=== PATIENT | female | born 1960 | race Caucasian/White ===

== ENCOUNTER 2022-09-15 07:01 | Day surgery (SDC) | payer OTHER ==
[~2022-09-15] VITALS: Ht 172.7 cm; Wt 117.9 kg
[~2022-09-15 07:01] MED LIST: ceFAZolin SODIUM 2 GM in D5W 50 ML IV ONE
[2022-09-15 08:40] VITALS: O2SAT 97
[2022-09-15] MEDS ORDERED: HYDROmorphone 2 MG/ML VIAL IVP PRN (10:00)
[2022-09-15] MEDS ORDERED: HYDROmorphone 1 MG/ML INJ. CARTRIDGE IVP PRN (10:00)
[2022-09-15] MEDS ORDERED: ONDANSETRON HCL 4 MG/2 ML VIAL IVP PRN ×2 (10:00→11:45)
[2022-09-15] MEDS ORDERED: LR 1,000 ML IV SCH (10:00)
[2022-09-15] MEDS ORDERED: KETOROLAC TROMETHAMINE 30 MG VIAL IVP PRN (10:00)
[2022-09-15] MEDS ORDERED: ACETAMINOPHEN I.V. 1000 MG 100 ML IV ONE (11:22)
[2022-09-15] MEDS ORDERED: HYDROcodone/ACETAMIN 7.5-325 MG TAB PO PRN (11:45)
[2022-09-15] MEDS ORDERED: MORPHINE 4 MG INJ. 4 MG/ML VIAL IVP PRN (11:45)
[2022-09-15] MEDS ORDERED: BUPIVACAINE /PF 0.25% 30 ML VIAL INJ ONE (12:10)
[2022-09-15] MEDS ORDERED: NS IRRIG SOLN 1000 ML IR ONE (12:10)
[2022-09-15] MEDS ORDERED: DEXAMETHASONE SOD PHOSPHATE 4 MG/ML VIAL ONE (12:10)
[2022-09-15] MEDS ORDERED: LIDOCAINE 2%, 20 ML MDV ONE (12:10)
[2022-09-15] MEDS ORDERED: ONDANSETRON HCL 4 MG/2 ML VIAL ONE (12:10)
[2022-09-15] MEDS ORDERED: SUCCINYLCHOLINE CHLORIDE 20 MG/ML(QUELICIN) ONE (12:10)
[2022-09-15] MEDS ORDERED: ROCURONIUM BROMIDE 10 MG/ML (ZEMURON) ONE (12:10)
[2022-09-15] MEDS ORDERED: LR 1,000 ML IV.SOLN IV ONE (12:10)
[2022-09-15] MEDS ORDERED: MIDAZOLAM HCL 5 MG/ML VIAL (VERSED) IV ONE (12:10)
[2022-09-15] MEDS ORDERED: PROPOFOL 200MG/ 20ML VIAL (DIPRIVAN) IV ONE (12:10)
[2022-09-15] MEDS ORDERED: SEVOFLURANE 15 MIN GAS INH ONE (12:10)
[2022-09-15] MEDS ORDERED: NEOSTIGMINE METHYLSULFATE 1 MG/ML, 10 ML VIAL ONE (12:10)
[2022-09-15] MEDS ORDERED: ePHEDrine sulfate 50 MG/ML VIAL ONE (12:10)
[2022-09-15] MEDS ORDERED: GLYCOPYRROLATE 0.2 MG/ML VIAL ONE (12:10)
[2022-09-15] MEDS ORDERED: fentaNYL CITRATE/PF 100 MCG/2 ML AMP ONE (12:10)
[2022-09-15] MEDS ORDERED: KETOROLAC TROMETHAMINE 30 MG VIAL ONE (12:43)
[2022-09-15] MEDS ORDERED: HYDROcodone/ACETAMIN 5-325 MG TAB (NORCO/ VICODIN) ONE (14:26)
[2022-09-15 15:48] VITALS: BP_SYST 130; PULSE 73; RESP 18
== END 2022-09-15 15:55 | disposition home or self-care (01) ==
LOC: SDS 07:01 → SMU 07:02 → SDS 15:55
PROVIDERS: ATTEND Surgery
DX: K42.0 Umbilical hernia with obstruction, without gangrene (principal); E66.01 Morbid (severe) obesity due to excess calories; I10 Essential (primary) hypertension; M79.7 Fibromyalgia; Z90.49 Acquired absence of other specified parts of digestive tract; Z68.41 Body mass index [BMI] 40.0-44.9, adult
CPT/HCPCS: 87081; 49592; 86886; 86900; 86901; 36415; J3490 ×2; J1100; J1885; J2001; J2250; J2405; J2704; J0330; J3010; J7060; J7120; C1727; C1781; J0131; J2710; S2900; E0190